=== PATIENT | male | born 1955 | race Caucasian/White ===

== ENCOUNTER 2020-11-23 14:07 | Outpatient (CLI) | payer BC, SELFPAY ==
--- NOTE | 2020-11-23 14:30 | MR_ITS ---
WS: [id number] MRI RIGHT ELBOW without CONTRAST. COMPARISON: None Multiplanar, multisequence imaging is performed without contrast. Large fluid gap extending over length of greater than 10 mm involving the distal biceps tendon at its attachment to the radial tuberosity. There is a large amount of additional edema and hemorrhage in t he soft tissues anteriorly. Proximal to the fluid gap the biceps tendon is retracted and wavy. There is a split tear in the more proximal portion of the biceps brachii tendon. Moderate amount of muscle edema and soft tissue edema in the antecubital fossa. No significant amount of marrow edema at the ra dial tuberosity. No avulsion fracture identified. The radial head and ulna are intact. There is increased linear T2 signal in the radial collateral ligament. The overlying common extensor tendon is intact. Triceps tendon is normal. There is a very small joint effusion. MR/MR elbow RT wo con* [id number] IMPRESSION: 1. Complete tear with retraction biceps brachii tendon from the radial tuberos ity. 10 mm fluid gap with retraction of the tendon is present. 2. There is an additional split tear of the biceps tendon proximal to the flui d gap. 3. Partial tear radial collateral ligament.
== END 2020-11-23 14:08 | disposition home or self-care (01) ==
PROVIDERS: Visit Provider Nurse Practitioner Family
DX: M79.18 Myalgia, other site (principal); S46.211A Strain of muscle, fascia and tendon of other parts of biceps, right arm, initial encounter; S53.431A Radial collateral ligament sprain of right elbow, initial encounter; X58.XXXA Exposure to other specified factors, initial encounter
CPT/HCPCS: 73221

== ENCOUNTER 2022-11-27 11:09 | Outpatient (CLI) | payer BC, SELFPAY ==
--- NOTE | 2022-11-27 11:19 | MR_ITS ---
WS: [id number] MRI CERVICAL SPINE NONCONTRAST HISTORY: CERVICALGIA COMPARISON: None available. Technique: Multiplanar, multisequence noncontrast imaging of the cervical spine. Straightening of the normal cervical lordosis with slight retrolisthesis at C3-4. Disc spaces are mod erately narrowed throughout the cervical spine with osteophytic ridging. No acute fracture. Signal within the cervical cord is normal. Visualized posterior fossa is unremarkable. Craniocervical junction, C1 and C2 relationship, odontoid process and soft tissues are normal. C2-C3: RIGHT foraminal osteophyte with mild foraminal stenosis. C3-C4: Mild annular disc bulging and osteophytic ridging with a central disc protrusion. Effacement o f the ventral CSF. Moderate RIGHT foraminal and mild LEFT foraminal osteophyte disease. Moderate cent ral and RIGHT foraminal stenosis. C4-C5: Osteophytic ridging and disc bulging with facet arthritis. Moderate central and bilateral fora maame stenosis. C5-C6: Osteophytic ridging and annular disc bulging and facet arthritis. Central disc protrusion. Mod erate central and bilateral foraminal stenosis. C6-C7: Osteophytic ridging and annular disc bulging with facet arthritis. Moderate central and bilate ral foraminal stenosis. C7-T1: Foraminal disc osteophyte complexes. Moderate bilateral foraminal stenosis. Paraspinal soft tissue are normal. MR/MR cervical spin wo con* [id number] IMPRESSION: 1. Multilevel advanced degenerative disc disease and spondylosis. 2. Moderate central and RIGHT foraminal stenosis at C3-4. 3. Moderate central and bilateral foraminal stenosis at C4-5, C5-6 and C6-7. S tenosis due to combination of osteophyte and disc disease. 4. Moderate bilateral foraminal stenosis at C7-T1.
== END 2022-11-27 11:10 | disposition home or self-care (01) ==
PROVIDERS: PCP Family Medicine; Visit Provider Family Medicine
DX: M50.31 Other cervical disc degeneration, high cervical region (principal); M47.812 Spondylosis without myelopathy or radiculopathy, cervical region; M48.03 Spinal stenosis, cervicothoracic region; M25.78 Osteophyte, vertebrae
CPT/HCPCS: 72141

== ENCOUNTER → 2023-02-06 10:40 | Outpatient (BNVA) | payer BC, SELFPAY | PROVIDERS: PCP Family Medicine; Visit Provider Nurse Practitioner | DX: M25.571 Pain in right ankle and joints of right foot (principal) | CPT/HCPCS: 73610 ==

== ENCOUNTER 2024-01-08 10:00 | Emergency (ER) | payer OTHER, SELFPAY ==
[2024-01-08 10:03] VITALS: BP 163/83; PULSE 61; RESP 18; TEMP 36.8; O2SAT 96; BMI 19.3
--- NOTE | 2024-01-08 10:03 | ECG_ITS ---
[facility] Test Date: 2024-01-08 Pat Name: Prince Veliz Department: Room: Gender: Male Director Of Services: : 1955 Requested By: Deonte Higgins Order Number: [id number] Melissa MD: Jeff Isaac M.D. Measurements Intervals [place] Rate: 63 P: 84 RI: 121 QRS: 78 QRSD: 121 T: 62 QT: 408 QTc: 420 Interpretive Statements SINUS RHYTHM POSSIBLE LEFT ATRIAL ENLARGEMENT [-0.1mV P-WAVE IN V1/V2] POSSIBLE RIGHT VENTRICULAR CONDUCTION DELAY [RSR (QR) IN V1/V2] INTERPRETATION BASED ON A DEFAULT AGE OF 40 YEARS No previous ECG available for comparison Electronically Signed On 01-08-2024 16:43:51 CDT by eJff Isaac M.D. [email or web address] [email or web address] Com[email or web address]/store/NU/[id number] f
--- NOTE | 2024-01-08 10:07 | ECG_ITS ---
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 Measurements Intervals [place] Rate: 63 P: 84 MO: 121 QRS: 78 QRSD: 121 T: 62 QT: 408 QTc: 420 Interpretive Statements SINUS RHYTHM POSSIBLE LEFT ATRIAL ENLARGEMENT [-0.1mV P-WAVE IN V1/V2] POSSIBLE RIGHT VENTRICULAR CONDUCTION DELAY [RSR (QR) IN V1/V2] INTERPRETATION BASED ON A DEFAULT AGE OF 40 YEARS No previous ECG available for comparison Electronically Signed On 01-08-2024 16:40:03 CDT by Jeff Isaac M.D. [id number] f
--- NOTE | 2024-01-08 10:07 | XRR_ITS ---
PROCEDURE INFORMATION: Exam: XR Chest Exam date and time: 01/08/2024 10:11 AM Age: 68 years old Clinical indication: Cough and dyspnea; Additional info: Dyspnea/cough TECHNIQUE: Imaging protocol: Radiologic exam of the chest. Views: 1 view. COMPARISON: MR cervical spin wo con* [id number] 11/27/2022 11:33 AM FINDINGS: Lungs: Unremarkable. No consolidation or mass. Pleural spaces: Unremarkable. No pleural effusion. No pneumothorax. Heart/Mediastinum: Unremarkable. No cardiomegaly. Bones/joints: Unremarkable. XR/XR chest 1V portable [id number] IMPRESSION: No acute findings.
[2024-01-08 10:26] LABS: Basophils % 0.7 %; Eosinophils # 0.1 10^3/uL (0.0-0.8); Eosinophils % 1.3 %; Hematocrit 46.6 % (37-53); Lymphocytes # 1.4 10^3/uL (0.8-4.8); Lymphocytes % 24.8 %; Mean Corpuscular HGB Conc 33.7 g/dL (30-55); Mean Corpuscular Hemoglobin 29.2 pg (27-33); Mean Corpuscular Volume 86.6 fl (82-101); Mean Platelet Volume 9.6 fL (7.4-10.4); Monocytes # 0.6 10^3/uL (0.2-0.9); Monocytes % 10.2 %; Neutrophils % 62.8 %; Nucleated Red Blood Cells % 0 %; Platelet Count 314 10^3/cmm (157-399); Red Blood Count 5.38 10^6/uL (3.85-5.65); Red Cell Distribution Width 13.3 % (12.1-15.1); White Blood Count 5.57 10^3/uL (3.29-11.43)
[2024-01-08 10:27] VITALS: BP 148/79; PULSE 85; RESP 21; O2SAT 98
[2024-01-08] MEDS: aspirin 81 mg Chew Tablet 324 MG PO (10:32)
[2024-01-08 10:45] LABS: Alanine Aminotransferase 16 U/L (0-41); Albumin Level 4.8 g/dL (3.5-5.2); Alkaline Phosphatase 103 U/L (40-130); Anion Gap 19.4 (5-19); Aspartate Amino Transferase 26 U/L (0-40); Blood Urea Nitrogen 21 mg/dL (8-23); Calcium 9.9 mg/dL (8.5-10.5); Carbon Dioxide 22 mmol/L (22-29); Chloride 102 mmol/L (98-107); Creatinine Clr Calc Pharmacy 84.1818; Globulin 2.7 g/dL (1.3-4.6); Glomerular Filtration Rate 95.8 mL/min (90-130); Glucose 100 mg/dL (65-115); Osmolality Calculated 291 mOsm/kg (285-295); Potassium 4.4 mmol/L (3.5-5.1); Sodium 139 mmol/L (136-145); Total Bilirubin 0.8 mg/dL (0.15-1.2); Total Protein 7.5 g/dL (6.6-8.7)
[2024-01-08 10:48] LABS: Troponin(5th) Baseline < 6 ng/L (0-15)
[2024-01-08 11:46] VITALS: BP 142/76; PULSE 57; RESP 15; O2SAT 97
--- NOTE | 2024-01-08 12:03 | W.ED.CHESTPA ---
HPI - Chest Pain General: Chief Complaint: Chest Pain Stated Complaint: Chest pain and SOB Time Seen by Provider: 01/08/24 10:07 Source: patient Mode of arrival: ambulatory History of Present Illness: 68-year-old male presents emergency room with complaint of substernal chest pain and pressure times going on for the last 5 days. He had increasing shortness of breath this morning it woke him up around 4 AM. No nausea or vomiting he has not really noticed anything that seems to make it better or worse. He has had pretty significant esophageal ulcerations in the past never had a perforation however. He denies any hematemesis or coffee-ground emesis no history of PE DVT. No known history of coronary artery disease. No recent productive cough or fever. MD complaint: chest pain Onset (ago): day(s) (5) Timing of current episode: episodic Onset: during rest Pain location: substernal Quality: tightness and heaviness Relieving factors: nothing Exacerbating factors: nothing Associated symptoms: Deny abdominal pain, diaphoresis, dyspnea, fever(s), leg edema, nausea, palpitations, sense of impending doom, syncope or vomiting Treatment prior to arrival: none Review of Systems Const: Denies: fever(s) or diaphoresis Card: Denies: palpitations or syncope Resp: Denies: dyspnea GI: Denies: abdominal pain, nausea or vomiting : Denies: dysuria, urinary frequency or urinary urgency Musc: Denies: neck pain or back pain Skin/Breast: Denies: rash Physical Exam Const: COMMON NORMALS: no acute distress GENERAL APPEARANCE: cooperative and comfortable ORIENTATION/CONSCIOUSNESS: Yes awake, Yes oriented to person, Yes oriented to place and Yes oriented to time HENMT: COMMON NORMALS: normocephalic, atraumatic and hearing grossly normal bilaterally HEAD & SCALP: normocephalic and atraumatic Resp: COMMON NORMALS: normal respiratory effort, No retractions, No use of accessory muscles and clear to auscultation bilaterally AUSCULTATION: clear to auscultation bilaterally Cardio: COMMON NORMALS: regular rate, regular rhythm and No murmurs present (Cardio) RATE: regular rate RHYTHM: regular rhythm GI: COMMON NORMALS: Soft to palpation and No hepatosplenomegaly present AUSCULTATION: Yes normoactive bowel sounds PALPATION: Yes Soft to palpation, No Tenderness to palpation present (GI), No Guarding due to palpation present (GI) and Yes No hepatosplenomegaly present Extremity: COMMON NORMALS: normal to inspection, capillary refill normal, no clubbing, cyanosis or edema, no calf tenderness and no pedal edema Neuro: SENSORIUM/ORIENTATION: Yes oriented to person, Yes oriented to place and Yes oriented to time Skin: COMMON NORMALS: no rashes or lesions noted GENERAL SKIN EXAM: no rashes or lesions noted Course Vital Signs: Vital signs: Vital Signs Temperature 98.2 F 01/08/24 10:03 Pulse Rate 61 01/08/24 13:29 Respiratory Rate 20 H 01/08/24 13:29 Blood Pressure 125/96 01/08/24 13:29 Pulse Oximetry 95 01/08/24 13:29 Oxygen Delivery Me thod Room Air 01/08/24 11:46 MDM - Chest Pain Medical Decision Making Labs and imaging reviewed. Chest x-ray normal no pneumothorax no pneumonia no widening of mediastinum D-dimer is negative cardiac enzymes and EKGs did not show any acute changes. Will discharge patient home states that similar symptoms with severe reflux in the past even at the point developing esophageal ulcers. He has not had any hematemesis or coffee-ground emesis no Medic easier melena. Start him on increased dose of Protonix twice daily for 10 days then daily follow-up with primary care Medical Records I reviewed the patient's medical records. Lab Data I reviewed the patient's lab results. 01/08/24 10:12 01/08/24 10:12 Radiology Impressions Chest X-Ray 01/08/24 10:07 IMPRESSION: No acute findings. Laboratory Results WBC 5.57 10^3/uL (3.29-11.43) 01/08/24 10:12 RBC 5.38 10^6/uL (3.85-5.65) 01/08/24 10:12 Hgb 15.70 g/dL (11.27-16.99) 01/08/24 10:12 Hct 46.6 % (37-53) 01/08/24 10:12 MCV 86.6 fl (82-101) 01/08/24 10:12 MCH 29.2 pg (27-33) 01/08/24 10:12 MCHC 33.7 g/dL (30-55) 01/08/24 10:12 RDW 13.3 % (12.1-15.1) 01/08/24 10:12 Plt Count 314 10^3/cmm (157-399) 01/08/24 10:12 MPV 9.6 fL (7.4-10.4) 01/08/24 10:12 Neut % (Auto) 62.8 % 01/08/24 10:12 Lymph % (Auto) 24.8 % 01/08/24 10:12 Schley % (Auto) 10.2 % 01/08/24 10:12 Eos % (Auto) 1.3 % 01/08/24 10:12 Baso % (Auto) 0.7 % 01/08/24 10:12 Neut # (Auto) 3.50 10^3/uL (1.8-7.7) 01/08/24 10:12 Lymph # (Auto) 1.4 10^3/uL (0.8-4.8) 01/08/24 10:12 Schley # (Auto) 0.6 10^3/uL (0.2-0.9) 01/08/24 10:12 Eos # (Auto) 0.1 10^3/uL (0.0-0.8) 01/08/24 10:12 Baso # (Auto) 0.0 10^3/uL (0.0-0.1) 01/08/24 10:12 Nucleated RBC % (auto) 0 % 01/08/24 10:12 Nucleated RBCs # 0.0 /100WBC 01/08/24 10:12 D-Dimer 0.56 ug/mLFEU (0-0.59) 01/08/24 10:12 Sodium 139 mmol/L (136-145) 01/08/24 10:12 Potassium 4.4 mmol/L (3.5-5.1) 01/08/24 10:12 Chloride 102 mmol/L (98-107) 01/08/24 10:12 Carbon Dioxide 22 mmol/L (22-29) 01/08/24 10:12 Anion Gap 19.4 (5-19) H 01/08/24 10:12 BUN 21 mg/dL (8-23) 01/08/24 10:12 Creatinine 0.8 mg/dL (0.7-1.2) 01/08/24 10:12 GFR Calculation 95.8 mL/min (90-130) 01/08/24 10:12 Glucose 100 mg/dL (65-115) 01/08/24 10:12 Calculated Osmolality 291 mOsm/kg (285-295) 01/08/24 10:12 Calcium 9.9 mg/dL (8.5-10.5) 01/08/24 10:12 Total Bilirubin 0.8 mg/dL (0.15-1.2) 01/08/24 10:12 AST 26 U/L (0-40) 01/08/24 10:12 ALT 16 U/L (0-41) 01/08/24 10:12 Alkaline Phosphatase 103 U/L (40-130) 01/08/24 10:12 Troponin T Baseline < 6 ng/L (0-15) 01/08/24 10:12 Troponin T 120 Minute 6.00 ng/L (0-15) 01/08/24 12:05 Delta Troponin T 0.61472 ABS# (0-10) 01/08/24 12:05 Total Protein 7.5 g/dL (6.6-8.7) 01/08/24 10:12 Albumin 4.8 g/dL (3.5-5.2) 01/08/24 10:12 Globulin 2.7 g/dL (1.3-4.6) 01/08/24 10:12 All radiology interpretation(s) finalized by discharge Discharge Plan Discharge Patient Disposition: Home Clinical Impression: Atypical chest pain, Chest pain due to GERD Condition: Stable Prescriptions: New pantoprazole 40 mg tablet,delayed release (DR/EC) 40 mg PO BID 30 Days Qty: 60 0RF Rx Instructions: 1 p.o. twice daily x 10 days then daily Discontinued pantoprazole [Protonix] 40 mg tablet,delayed release (DR/EC) 40 mg PO DAILY PRN (Reason: Acid Reflux) Discharge Orders: Discharge ED (Routine); Ordered 01/08/24 Ordered By: Deonte Gray Referrals: Helio Wadsworth DO [Primary Care Provider] - Discharge Diet: As Directed Discharge Activity: Increase activity as tolerated Patient Instructions: Diet for Stomach Ulcers and Gastritis (ED), Gastroesophageal Reflux in Infants (ED), Opioid Safety, Pain Management Activity Restrictions/Additional Instructions: Thank you for choosing [facility] for your healthcare needs today. It is very important that you follow up as instructed or that you return to the Emergency Department should you have concerns or if your condition changes or worsens in any way. You were seen today for chest discomfort for several days. All of your cardiac evaluation appears normal. Your chest x-ray also appeared normal. Based on your symptoms and the labs done today suspect that your pain is coming from reflux and esophageal irritation. Recommend you increase your pantoprazole to 1 pill twice a day for 10 days then once daily. If your symptoms continue follow-up with your primary care doctor for referral for possible endoscopy Coding Level of Care Code ED Blasting Entryman for Denise Landaverde
--- NOTE | 2024-01-08 12:16 | ECG_ITS ---
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 Measurements Intervals [place] Rate: 57 P: 70 [place]: 126 QRS: 71 QRSD: 118 T: 51 QT: 422 QTc: 413 Interpretive Statements SINUS BRADYCARDIA INCOMPLETE RIGHT BUNDLE BRANCH BLOCK [90+ ms QRS DURATION, TERMINAL R IN V1/V2, 40+ ms S IN I/aVL/V4/V5/V6] Compared to ECG 01/08/2024 10:03:38 Incomplete right bundle-branch block now present Sinus rhythm no longer present Electronically Signed On 01-08-2024 16:44:01 CDT by Jeff Isaac M.D. [email or web address]/store/[id number]
[2024-01-08 12:31] LABS: Troponin 5 2HR Delta 0.00001 ABS# (0-10)
[2024-01-08 12:36] LABS: D Dimer 0.56 ug/mLFEU (0-0.59)
[2024-01-08 13:29] VITALS: BP 125/96; PULSE 61; RESP 20; O2SAT 95
== END 2024-01-08 13:30 | disposition home or self-care (01) ==
PROVIDERS: Emergency Provider Family Medicine; PCP Internal Medicine
DX: K21.9 Gastro-esophageal reflux disease without esophagitis (principal); R07.89 Other chest pain; I45.10 Unspecified right bundle-branch block
CPT/HCPCS: 36415; 71045; 80053; 84484; 85025; 85378; 93005; 99285

== ENCOUNTER 2024-03-06 08:43 | Outpatient (CLI) | payer MEDICARE, SELFPAY ==
--- NOTE | 2024-03-06 | ECG_ITS ---
[facility] Test Date: 2024-03-06 Pat Name: Prince Veliz Department: Room: Gender: Male Dining Room Coordinator: Yves Spencer : 1955 Requested By: Obie Arana Order Number: [id number] Melissa MD: GONZALEZ ALVARADO Interpretive Statements NAME OF STUDY: TREADMILL STRESS TEST INDICATION: [CP, ] EXERCISE DATA: The patient was exercised by Prince protocol. Baseline heart rate was 76 beats per minute. Baseline blood pressure was 116/68 millimeters of mercury. Target heart rate was 151 beats per minute. Maximum heart rate achieved was 165, which was 109 % of the target heart rate. Maximum blood pressure was 207/96 millimeters of mercury. Total exercise time was 9 minutes 36 seconds. Maximum METs achieved was 13.5, maximum VO2 was 47.3. The reason for ending the test was maximum effort achieved. The patient complained of shortness of breath during the stress test, which then resolved at the end of the test. ELECTROCARDIOGRAM: BASELINE: Showed sinus rhythm, normal axis, incomplete right bundle branch block, no significant ST-T changes at the baseline noted. EXERCISE: At the peak exercise level, inferolateral ST depression noted which was upsloping RECOVERY: During the recovery period, heart rate dropped appropriately. ST depression normalized after 7 minutes of recovery however horizontal ST depression was noted cannot rule out ischemia CONCLUSION: 1. Exercise capacity good. 2. Heart rate response was appropriate. 3. Blood pressure response was hypertensive. 4. Symptoms not suggestive of ischemia. 5. Electrocardiogram portion of the stress test was equivocal for ischemia. 6. Nuclear scan will be documented separately. Electronically Signed On 03-06-2024 13:07:54 CDT by GONZALEZ ALVARADO [email or web address]/store/[id number]
--- NOTE | 2024-03-06 08:54 | USCV_ITS ---
Prince Veliz Age: 68 Gender: M : 1955 Exam Date: 03/06/2024 09:18 Ordering Phys: Obie Rich MD Technologist: Exam Location: [facility] [place] Indication: sob cp BP: 121 / 74 HR: 63 Rhythm: Sinus Technical Quality: Adequate MEASUREMENTS (Male / Female) Normal Values 2D ECHO LV Diastolic Diameter PLAX 4.1 cm 4.2 - 5.9 / 3.9 - 5.3 cm IVS Diastolic Thickness 0.7 cm 0.6 - 1.0 / 0.6 - 0.9 cm IVS Systolic Thickness 1.1 cm LVPW Diastolic Thickness 0.9 cm 0.6 - 1.0 / 0.6 - 0.9 cm LVPW Systolic Thickness 1.3 cm LVOT Diameter 1.8 cm LV Ejection Fraction 2D Teich 71.6 % LV Ejection Fraction MOD 4C 58.3 % LV Ejection Fraction MOD 2C 45.4 % LV Ejection Fraction 2C AL 45.0 % LA Diameter 3.1 cm RA Systolic Volume 4C AL 34.1 ml RA Systolic Volume 4C MOD 32.7 ml M-MODE LA Ao Ratio MM 1.0 AV Cusp Separation MM 2.5 cm DOPPLER AV Peak Velocity 111.0 cm/s LVOT Peak Velocity 88.0 cm/s AV Area Cont Eq vti 2.2 cm squared AV Area Cont Eq pk 1.9 cm squared MV Area PHT 3.7 cm squared Mitral E to A Ratio 1.4 TV Peak Velocity 113.0 cm/s TR Peak Velocity 157.0 cm/s TR Peak Gradient 9.9 mmHg TV Peak E Velocity 85.0 cm/s Right Atrial Pressure 3.0 mmHg Pulmonary Artery Systolic Pressu 12.9 mmHg PV Peak Velocity 104.0 cm/s FINDINGS Left Ventricle Normal left ventricular size, systolic function and wall thickness, with no regional wall motion abnormalities. Left ventricular ejection fraction is estimated at 60 %. Mildly increased left ventricular filling pressure. Right Ventricle The right ventricle is normal in size and function. Right Atrium The right atrium is normal in size. Left Atrium The left atrium is normal in size. Mitral Valve Structurally normal mitral valve without significant stenosis or prolapse. There is no mitral regurgitation. Aortic Valve Mild aortic valve calcification. No aortic valve stenosis. Trace aortic valve regurgitation. Tricuspid Valve Structurally normal tricuspid valve without significant stenosis or regurgitation. Pulmonary artery systolic pressure is normal. Pulmonic Valve Structurally normal pulmonic valve without significant stenosis. There is no pulmonic regurgitation. Pericardium Normal pericardium without effusion. Aorta Normal ascending aorta dimension. IVC The inferior vena cava appears normal. CONCLUSIONS Normal left ventricular size, systolic function and wall thickness, with no regional wall motion abnormalities. Left ventricular ejection fraction is estimated at 60 %. Mildly increased left ventricular filling pressure. No significant valve abnormalities. There is no pericardial effusion. Right atrial pressure is around 5 mm of mercury. Juan Carlos Arnold MD (Electronically Signed) Final Date: 06 March 2024 11:52 S
[2024-03-06 09:40] VITALS: BMI 18.9
[2024-03-06 10:02] VITALS: BP 156/64; PULSE 96
== END 2024-03-06 08:44 | disposition home or self-care (01) ==
PROVIDERS: PCP Family Medicine; Visit Provider Family Medicine
DX: I45.10 Unspecified right bundle-branch block (principal); R06.01 Orthopnea; I49.8 Other specified cardiac arrhythmias; R07.9 Chest pain, unspecified
CPT/HCPCS: 93017; 93306

== ENCOUNTER 2025-06-03 15:48 | Outpatient (CLI) | payer MEDICARE, SELFPAY ==
--- NOTE | 2025-06-03 16:11 | MRR_ITS ---
PROCEDURE INFORMATION: Exam: MR Left Upper Extremity Joint Without Contrast; Shoulder Exam date and time: 06/03/2025 4:22 PM Age: 69 years old Clinical indication: Left; --lt shoulder pain with no specific injury; Additional info: Chronic pain in lt shoulder TECHNIQUE: Imaging protocol: Magnetic resonance imaging of the left upper extremity without contrast. Exam focused on the shoulder. COMPARISON: MR cervical spin wo con* [id number] 11/27/2022 11:33 AM FINDINGS: Bones/joints: There are moderate degenerative changes to the acromioclavicular joint. There is subchondral cystic changes and edema in the lesser tuberosity humerus immediately adjacent to the subluxing biceps tendon compatible with reactive changes. There is moderate diffuse cartilage thinning in the glenohumeral joint without subchondral cysts or bony edema. Glenoid labrum: There is mild degenerative fraying/blunting of the labrum. Bursae: There is increased fluid in the subacromial and subdeltoid bursa. There is bursal sided edema and fraying of the supraspinatus musculotendinous junction directly beneath a subacromial enthesophyte. There is mild bursal sided fraying and edema of the infraspinatus musculotendinous junction without complete tear. Supraspinatus tendon: Unremarkable. No evidence of tear. Infraspinatus tendon: Unremarkable. No evidence of tear. Subscapularis tendon: There is no complete tear of the subscapularis but there is tendinopathy with delamination and articular sided partial tearing. Teres minor tendon: Unremarkable. No evidence of tear. Tendon of biceps brachii: There is severe proximal long head biceps tendinopathy. There is proximal biceps tendon enlargement, lingo cleaner splitting and subluxation of the tendon from the bicipital groove of the humerus between the layers of the superior subscapularis tendon. Glenohumeral ligaments: Unremarkable. Soft tissues: Unremarkable. MR/MR shoulder LT wo con* [id number] IMPRESSION: 1. There is severe proximal long head biceps tendinopathy. There is proximal biceps tendon enlargement, lingo cleaner splitting and subluxation of the tendon from the bicipital groove of the humerus between the layers of the superior subscapularis tendon. 2. There is no complete tear of the subscapularis but there is tendinopathy with delamination and articular sided partial tearing. 3. There is bursal sided edema and fraying of the supraspinatus musculotendinous junction directly beneath a subacromial enthesophyte.
== END 2025-06-03 15:49 | disposition home or self-care (01) ==
LOC: RAD 15:49
PROVIDERS: PCP Family Medicine; Visit Provider Family Medicine
DX: M67.812 Other specified disorders of synovium, left shoulder (principal); M75.22 Bicipital tendinitis, left shoulder; M75.112 Incomplete rotator cuff tear or rupture of left shoulder, not specified as traumatic
CPT/HCPCS: 73221